=== PATIENT | female | born 1995 | race African-American/Black ===

== ENCOUNTER 2019-03-08 12:34 | Emergency (ER) | payer SELFPAY ==
[~2019-03-08] VITALS: Ht 177.8 cm; Wt 163.0 kg
[2019-03-08] MEDS ORDERED: IBUPROFEN 800MG TABLET PO ONE (14:30)
[2019-03-08 14:37] VITALS: BP 150/92
== END 2019-03-08 14:38 | disposition home or self-care (01) ==
LOC: ER 12:34
DX: H66.92 Otitis media, unspecified, left ear (principal); H60.92 Unspecified otitis externa, left ear; E11.9 Type 2 diabetes mellitus without complications; I10 Essential (primary) hypertension; J45.909 Unspecified asthma, uncomplicated; E66.9 Obesity, unspecified; Z68.43 Body mass index [BMI] 50.0-59.9, adult
CPT/HCPCS: 99283